=== PATIENT | male | born 1955 | race Caucasian/White ===

== ENCOUNTER 2022-04-06 09:09 | Day surgery (SDC) | payer MEDICARE ==
[2022-03-30 15:29] LABS: BASOPHILS # (AUTO) 0.1 X10'3 (0-0.2); EOSINOPHILS # (AUTO) 0.1 X10'3 (0-0.9); EOSINOPHILS % (AUTO) 2.2 % (0-6); LYMPHOCYTES # (AUTO) 1.5 X10'3 (1.1-4.8); LYMPHOCYTES % (AUTO) 25.4 % (21-51); MEAN CORPUSCULAR HEMOGLOBIN 32.5 PG (27.0-31.0); MEAN CORPUSCULAR VOLUME 95.5 FL (78-98); MEAN PLATELET VOLUME 8.2 FL (7.4-10.4); MONOCYTES # (AUTO) 0.7 X10'3 (0-0.9); MONOCYTES % (AUTO) 11.9 % (2-12); NEUTROPHILS # (AUTO) 3.4 X10'3 (1.8-7.7); NEUTROPHILS % (AUTO) 59.5 % (42-75); PRE OP HEMATOCRIT 45.8 % (42.0-52.0); PRE OP HEMOGLOBIN 15.6 g/dL (14.0-17.9); PRE OP PLATELET COUNT 152 X10'3 (140-440); RED BLOOD COUNT 4.79 X10'6 (4.70-6.10); RED CELL DISTRIBUTION WIDTH 13.9 % (11.5-14.5)
[2022-03-30 15:37] LABS: ALBUMIN 3.6 G/DL (3.4-5.0); ALKALINE PHOSPHATASE 68 IU/L (46-116); BLOOD UREA NITROGEN 19 MG/DL (7-18); BUN/CREATININE RATIO 20.4 (5.4-32.0); CALCIUM 8.8 MG/DL (8.5-10.1); CHLORIDE 103 MMOL/L (99-107); CREATININE 0.93 MG/DL (0.60-1.10); PRE OP ALT 29 U/L (30-65); PRE OP ANION GAP 6 (8-16); PRE OP AST 28 U/L (10-37); PRE OP BILIRUB, TOTAL 0.4 MG/DL (0.0-1.0); PRE OP GLUCOSE 118 MG/DL (70-104); PRE OP POTASSIUM 4.4 MMOL/L (3.4-5.1); PRE OP SODIUM 139 MMOL/L (135-145); TOTAL CARBON DIOXIDE 30.1 MMOL/L (24-32); TOTAL PROTEIN 7.1 G/DL (6.4-8.2); eGFR 81 ML/MIN
[2022-04-06] VITALS (7 sets, daily range): BP systolic 114–140; BP diastolic 66–87
[~2022-04-06] VITALS: Ht 180.3 cm; Wt 109.5 kg
[~2022-04-06 09:09] MED LIST: ceFAZolin inj. 2,000 MG in dextrose 5%-water 100 ML IV ONE; famotidine 20mg tablet PO ONE; ringers solution, lacted 1,000 ML IV SCH
[2022-04-06] MEDS ORDERED: LISI10TA27 PO (10:04)
[2022-04-06] MEDS ORDERED: LORA-641 PO (10:04)
[2022-04-06] MEDS ORDERED: MELO-102 PO (10:04)
[2022-04-06] MEDS ORDERED: ROSU20TA2 PO (10:04)
[2022-04-06] MEDS ORDERED: FLO0.4C PO (10:04)
[2022-04-06] MEDS ORDERED: ASPI-612 PO (10:04)
[2022-04-06] MEDS ORDERED: LIDOcaine 0.5% (5mg/ml) 50ml vial ONE (10:48)
[2022-04-06] MEDS ORDERED: fentaNYL/PF 50MCG/1 ML 2ML syringe ONE (13:38)
[2022-04-06] MEDS ORDERED: midazolam 1 mg/ML 2ml injection ONE (13:39)
[2022-04-06] MEDS ORDERED: BUPIVAcaine/PF 2.5mg/ml (0.25%) 10ml vial ONE (13:41)
[2022-04-06] MEDS ORDERED: hydrALAZINE 20mg/ml inj. IV ONE (14:00)
--- NOTE | 2022-04-06 14:08 | NUR ---
Received from OR via [facility], accompanied by Anesthesiologist DR HOGAN and report given by Anesthesiolgist. PT IS AWAKE AND ANSWERING QUESTIONS APPROPRIATELY, FOLLOWING COMMANDS AND ABLE TO OTTO. PT PLACED ON BEDSIDE MONITOR, VSS. PT IN SR WITH RATE IN 80'S. PT IS ON RA AND TOLERATING WELL WITH O2 SAT >95%. PT HAS 20G FARA TO RT HAND WITH LR INFUSING ORDERED. PT HAS DRSG TO LEFT HAND THAT IS CDI. ICE PACK IN PLACE. PT DENIES PAIN AT THIS TIME AND WILL CONTINUE TO ASSESS.
--- NOTE | 2022-04-06 15:10 | NUR ---
ALL DISCHARGE CRITERIA HAS BEEN MET. VSS, PAIN AT A TOLERABLE LEVEL, ABLE TO SAFELY AMBULATE AND TRANSFER SELF. IV TAKEN OUT WITHOUT ANY COMPLICATIONS. ALL DISCHARGE INSTRUCTIONS COVERED WITH PATIENT AND ALL QUESTIONS ANSWERED. PATIENT TAKEN OUT VIA WHEELCHAIR TO PERSONAL VEHICLE WHERE DROVE PATIENT HOME.
== END 2022-04-06 15:00 | disposition home or self-care (01) ==
LOC: PAS 09:09
PROVIDERS: ATTEND Orthopaedic Surgery Hand Surgery
DX: G56.02 Carpal tunnel syndrome, left upper limb (principal); G47.30 Sleep apnea, unspecified; Z79.899 Other long term (current) drug therapy; Z98.890 Other specified postprocedural states; Z87.891 Personal history of nicotine dependence; I10 Essential (primary) hypertension; Z85.46 Personal history of malignant neoplasm of prostate
CPT/HCPCS: 29848; 36415; 80053; 82948; 85025; 87811; J0360; J0690; J2250; J3010; J3490; J7030; J7060; J7120; Z7506; Z7512; A4215; A7000